=== PATIENT | male | born 1965 ===

== ENCOUNTER → 2016-06-24 | Outpatient (CLI) | payer OTHER ==
--- NOTE | 2016-06-24 16:01 | CT ---
CT of the abdomen and pelvis without contrast. HISTORY: Hernia TECHNIQUE: Axial CT images were obtained of the abdomen and pelvis without contrast. Coronal and sag ittal reconstructions obtained. FINDINGS: The lung bases are clear, no pleural effusion. The liver, spleen, adrenal glands, and pancreas appear unremarkable for noncontrast examination. The gallbladder appears normal. There is no bulky retroperitoneal lymphadenopathy. No abdominal ascite s. There are no calcifications noted within the kidneys or along the courses of the ureters bilaterally . The large and small bowel are normal in caliber without evidence of obstruction. The appendix appear s normal. Diverticulosis without evidence of diverticulitis. There is no bulky pelvic lymphadenopath y. No free fluid. No free air. The urinary bladder appears normal. There are small to moderate fat-c ontaining inguinal hernias bilaterally. There is a tiny fat-containing umbilical hernia. The visualized osseous structures appear normal. IMPRESSION: 1. Small to moderate bilateral fat-containing inguinal hernias. 2. Diverticulosis without evidence of diverticulitis.
== END ==
LOC: MW.DI 14:47
PROVIDERS: ATTEND Surgery
DX: K46.9 Unspecified abdominal hernia without obstruction or gangrene (principal); K40.20 Bilateral inguinal hernia, without obstruction or gangrene, not specified as recurrent; K57.90 Diverticulosis of intestine, part unspecified, without perforation or abscess without bleeding
CPT/HCPCS: 74176; 74176-26

== ENCOUNTER 2016-08-01 06:42 | Day surgery (SDC) | payer OTHER ==
[~2016-08-01 06:42] MED LIST: Lactated Ringers 1,000 ML IV SCH; Sodium Chloride 0.9% 10 ML Syringe FLUSH PRN; Sodium Chloride 0.9% 2.5 ML Syringe FLUSH PRN; ceFAZolin 2 GM in Premix Bag 1 BAG IV ONE
--- NOTE | 2016-08-01 07:05 | PCM.PREANE ---
Preanesthetic Assessment - Anesthesia/Transfusion/Family Hx Anesthesia History: Prior Anesthesia Without Reaction Family History of Anesthesia Reaction: No Transfusion History: No Prior Transfusion(s) - Review of Systems General: No Symptoms Pulmonary: No Symptoms Cardiovascular: No Symptoms Gastrointestinal: No symptoms Neurological: No Symptoms Other: Reports: None - Physical Assessment NPO Status Date: 07/31/16 Height: 1.78 m Weight: 83.461 kg ASA Class: 1 Mental Status: Alert & Oriented x3 Airway Class: Mallampati = 1 Dentition: Reports: Normal Dentition ROM/Head Extension: Full Lungs: Clear to auscultation, Normal respiratory effort Cardiovascular: Regular Rate, Regular Rhythm - Allergies Allergies/Adverse Reactions: Allergies Allergy/AdvReac Type Severity Reaction Status Date / Time No Known Allergies Allergy Verified 07/29/16 13:39 - Anesthesia Plan Pre-Op Medication Ordered: None - Acknowledgements Anesthesia Type Planned: General Anesthesia Pt an Appropriate Candidate for the Planned Anesthesia: Yes Alternatives and Risks of Anesthesia Discussed w Pt/Guardian: Yes Pt/Guardian Understands and Agrees with Anesthesia Plan: Yes Additional Comments: asthma inactive since childhood, plan ETT or LMA per Dr Coe's preference. PreAnesthesia Questionnaire HEENT History: Reports: Other (See Below) Other HEENT History: wears glasses Respiratory History: Reports: Asthma, Other (See Below) Other Respiratory History: asthma as a child - Past Surgical History Head Surgeries/Procedures: Reports: None Musculoskeletal Surgical History: Reports: Other (See Below) Other Musculoskeletal Surgeries/Procedures:: hx of surgery to rt hand - SUBSTANCE USE Smoking Status *Q: Never Smoker Recreational Drug Use History: No - HOME MEDS Home Medications: Home Meds . [No Known Home Meds] 07/29/16 [History] - CURRENT (IN HOUSE) MEDS Current Meds: Current Medications Lactated Ringer's (Ringers, Lactated) 1,000 mls @ 125 mls/hr IV ASDIRECTED JOSE Sodium Chloride (Saline Flush) 10 ml FLUSH ASDIRECTED PRN PRN Reason: Keep Vein Open Sodium Chloride (Saline Flush) 2.5 ml FLUSH ASDIRECTED PRN PRN Reason: Keep Vein Open Discontinued Medications Cefazolin Sodium/Dextrose 2 gm (/ Premix) 50 mls @ 100 mls/hr IV ONETIME ONE Stop: 07/31/16 16:47
[2016-08-01] MEDS ORDERED: Ondansetron 4 MG/2 ML SDV ONE (07:14)
[2016-08-01] MEDS ORDERED: fentaNYL 250 MCG/5 ML SDV ONE (07:14)
[2016-08-01] MEDS ORDERED: Rocuronium 10 MG/ML 10 ML Syringe ONE (07:14)
[2016-08-01] MEDS ORDERED: Midazolam 1 MG/ML 2 ML SDV ONE (07:14)
[2016-08-01] MEDS ORDERED: Propofol 200 MG/20 ML SDV ONE (07:14)
[2016-08-01] MEDS ORDERED: Bupivacaine 0.25%/EPINEPHrine 1:200,000 10 ML SDV ONE (07:16)
[2016-08-01] MEDS ORDERED: ceFAZolin 1 GM Vial ONE (07:16)
[2016-08-01] MEDS ORDERED: Bupivacaine 0.5% 30 ML SDV ONE (07:16)
[2016-08-01] MEDS ORDERED: Dexamethasone 4 MG/ML 5 ML MDV ONE (07:26)
[2016-08-01] MEDS ORDERED: HYDROmorphone 2 MG/ML Syringe ONE (08:04)
[2016-08-01] MEDS ORDERED: fentaNYL 100 MCG/2 ML SDV IVPUSH PRN (08:29)
--- NOTE | 2016-08-01 11:01 | PCM.OPNOTE ---
- General Post-Op/Procedure Note Date of Surgery/Procedure: 08/01/16 Operative Procedure(s): Bilateral inguinal hernia repair and umbilical hernia repair Findings: Bilateral indirect inguinal hernias with large cord lipomas. Umbilical hernia containing fat. Pre Op Diagnosis: Bilateral inguinal and umbilial hernia Post-Op Diagnosis: same Anesthesia Technique: General ET tube Primary Surgeon: Tamiko Coe Pathology: Left and right cord lipoma. Left inguinal hernia sac Fluid Replacement, Intraop: 2,000 Output, Urine Amount: 500 EBL in mLs: 10 Condition: Good
[2016-08-01] MEDS ORDERED: Acetaminophen/oxyCODONE 325-5 MG Tab PO PRN (11:07)
[2016-08-01] MEDS ORDERED: Cyclobenzaprine 5 MG Tab PO PRN (11:08)
--- NOTE | 2016-08-01 11:28 | PCM.POSTAN ---
POST ANESTHESIA ASSESSMENT - MENTAL STATUS Mental Status: alert, oriented - RESPIRATORY Respiratory Status: respiratory rate WNL, airway patent - CARDIOVASCULAR CV Status: pulse rate WNL, blood pressure stable - GASTROINTESTINAL GI Status: no symptoms - PAIN Pain Score: 4 - POST OP HYDRATION Hydration Status: adequate & stable
--- NOTE | 2016-08-01 12:38 | PCM48HPAN ---
Post Anesthesia Note - EVALUATION WITHIN 48HRS OF ANESTHETIC Vital Signs in Normal Range: Yes Patient Participated in Evaluation: Yes Respiratory Function Stable: Yes Airway Patent: Yes Cardiovascular Function Stable: Yes Hydration Status Stable: Yes Pain Control Satisfactory: Yes Nausea and Vomiting Control Satisfactory: Yes Mental Status Recovered: Yes
[2016-08-01 14:08] VITALS: BP 125/72
--- NOTE | 2016-08-02 02:05 | OR ---
SURGEON: ERIN PATTERSON MD DATE OF PROCEDURE: 08/01/2016 PREOPERATIVE DIAGNOSES: Bilateral inguinal hernias and umbilical hernia. POSTOPERATIVE DIAGNOSIS: Bilateral indirect inguinal hernias with cord lipomas, umbilical hernia. PROCEDURE PERFORMED: Repair of bilateral inguinal hernias with mesh, umbilical hernia repair. ANESTHESIA: General endotracheal anesthesia. FLUIDS: 2000 mL crystalloid. URINE OUTPUT: 500 mL. ESTIMATED BLOOD LOSS: 10 mL. FINDINGS: Bilateral indirect inguinal hernias with large associated cord lipomas. A 2-mm defect around the umbilical fascia corresponding with a fat-containing umbilical hernia sac. COMPLICATIONS: None. INDICATIONS: The patient is a 51-year-old male, who presents to my clinic after feeling a right groin bulge while lifting something at work. Further workup including imaging showed bilateral inguinal hernias as well as an umbilical hernia. The decision was made to perform a bilateral inguinal hernia repair and umbilical hernia repair. We discussed the procedures as well as expected perioperative course. We discussed the risks, including bleeding, infection, or damage to surrounding structures. The patient verbalized understanding and wishes to proceed. PROCEDURE IN DETAIL: The patient was brought in to the OR and placed in the OR table in supine position. A time-out was completed verifying the patient's name, age, date of , allergies, and procedure to be performed. General endotracheal anesthesia was induced. The patient's abdomen, pelvis, and genitalia were prepped and draped in the usual standard fashion. The left inguinal ligament was identified from the pubic tubercle to the ASIS. Two fingerbreadths above the pubic tubercle, a transverse incision was made. The skin was anesthetized with 0.5% Marcaine plain and the incision was made with a 15 blade scalpel approximately 6 cm in length. Dissection was carried down with cautery through Radha's fascia maintaining hemostasis. The external oblique was identified and incised along the length of its fibers with a 15 blade scalpel. Metzenbaum scissors were used to extend the incision in both directions opening the external oblique down to the external ring. Next, the external oblique was grasped with a hemostats on both sides and the cord and cord structures as well as the hernia sac were freed up circumferentially. A Osito drain was placed around the cord structures. Next, a large cord lipoma was identified and dissected free of the cord structures. While doing this, I encountered an indirect hernia sac. The cord lipoma was too large to be reduced in the abdomen and was transected using cautery at its base. The hernia sac was small enough that it could be easily reduced and was pushed back up into the abdomen. A large plug and patch was then brought into the field. The large plug was placed through the internal ring, and then sutured in place using interrupted 0 Ethibond sutures to the overlying fascia. Next, attention was made to placing the Prolene mesh to cover the floor. The mesh was sutured to the pubic tubercle medially using an 0 Ethibond suture. Interrupted 0 Ethibond sutures were then placed through the mesh and along the ilioinguinal ligament inferiorly and along the conjoint tendon superiorly making a slit for the cord and cord structures to go through. The tails of the mesh were then crossed and secured to the mesh plug and overlying tissues. The defect in the mesh was checked to make sure that it was tight enough to prevent recurrence of the hernia, but to allow enough room for the cord structures to go through without strangulation. The hole was the appropriate size. The area was then irrigated and the overlying external oblique closed over the roof with a running 3-0 Vicryl suture. I then turned my attention to the left side. A similar transverse incision was made using the same technique I had done with the previous right-sided inguinal hernia. The dissection was carried down with cautery through Radha's fascia maintaining hemostasis. Once the external oblique was identified, the external oblique was incised along the length of its fibers with a 15 blade scalpel. Metzenbaum scissors were then used to extend the incision in both directions opening up the external oblique down to the external ring. Next, the external oblique was grasped with hemostats on both sides. The cord, cord structures, as well as the hernia sac were freed up circumferentially. A Morrow drain was then placed around the cord structures. Again, the patient was noted to have a large associated cord lipoma and this was dissected off the cord structures down to the level of the internal ring. A small hernia sac was noted on the anteromedial portion of the hernia sac. This was stripped down and grasped with 2 hemostats. A Metzenbaum scissors was then used to open the hernia sac and the hernia sac was explored. There were no contents within the sac. The sac was then ligated at its base using 3-0 Vicryl suture and transected. This as well as the cord lipoma, which was transected using cautery, were sent to pathology. A large plug and patch was then brought into the field. I placed a plug through the internal ring and secured it using an 0 Ethibond suture to the overlying tissues. Next, attention was then made to place the Prolene mesh to cover the floor. The mesh was sutured to the pubic tubercle using an 0 Ethibond suture. The mesh was then secured in place with interrupted 0 Ethibond sutures along the ilioinguinal ligament inferiorly and along the conjoint tendon superiorly. The tails of the mesh were brought together along the lateral aspect and sutured together as well as to the mesh plug. I again checked the mesh opening to make sure that there was enough room for the cord structures to go through without strangulation, that it was tight enough to prevent reherniation. The hole was big enough just to accept the tip of my finger, which was adequate. The area was irrigated. I then closed the external oblique over the roof with a running 3-0 Vicryl suture taking care not to strangulate the cord and to recreate the external ring. I then turned my attention to the umbilical hernia. I anesthetized the supraumbilical fold with 0.5% Marcaine plain. A 15 blade was used to make a curvilinear incision along the supraumbilical fold. Cautery was used to dissect down through the subcutaneous tissues. Using a mosquito, I was able to come around the umbilical stalk and hernia sac. The hernia sac was dissected free of the surrounding tissues using a Metzenbaum scissors. The hernia sac was then dissected free of the umbilical stalk and down to the level of the fascia. The fascial defect appeared to be 2 mm in size. I was unable to reduce the sac contents into the abdomen, so I transected it at the fascial base using cautery. The defect indeed was 2 mm in size. Given its small size, I decided to close this primarily. An 0 Ethibond suture was used to bring the fascial defect together with a [id number] stitch. The wound was irrigated and found to be hemostatic. I closely inspected the 2 inguinal wounds to make sure they were hemostatic as well. All 3 wounds were then closed in a similar fashion using 3- 0 interrupted Vicryl to close the subcutaneous fat and running 4-0 Monocryl sutures to close the skin. Steri-Strips and sterile dressings were applied. All counts were complete and correct at the end of the case. The patient tolerated the procedure well and was extubated and taken to PACU in stable condition. EDWARD SIMMONS /[id number] NARENDRA
== END 2016-08-01 13:55 | disposition home or self-care (01) ==
LOC: MW.SDS 06:42
PROVIDERS: ATTEND Surgery
PROC: 0YUA0JZ Supplement Bilateral Inguinal Region with Synthetic Substitute, Open Approach (ICD-10-PCS; principal; 2016-08-01)
PROC: 0WQF0ZZ Repair Abdominal Wall, Open Approach (ICD-10-PCS; 2016-08-01)
DX: K40.20 Bilateral inguinal hernia, without obstruction or gangrene, not specified as recurrent (principal); K42.9 Umbilical hernia without obstruction or gangrene; J45.909 Unspecified asthma, uncomplicated; Z98.890 Other specified postprocedural states
CPT/HCPCS: 49505; 49585; 88302; A9270; C1781; J0690; J1100; J1170; J2250; J2405; J3010; J7120; 00830; J2704